=== PATIENT | male | born 1975 ===

== ENCOUNTER 2021-04-12 12:35 | Outpatient (CLI) | payer BC, SELFPAY ==
--- NOTE | ~2021-04-12 | CT_ITS ---
EXAMINATION: CT abdomen pelvis wo con DATE: 04/12/2021 13:06 INDICATION: Hematuria TECHNIQUE: Computed tomography (CT) of the abdomen and pelvis was performed without intravenous contr ast. Automated exposure control and iterative reconstruction technique were employed. Exam dose: 351 .59 mGy-cm total exam DLP. COMPARISON: noncontrast CT abdomen pelvis FINDINGS: Left lower lobe calcified pulmonary granuloma. No infiltrate or consolidation at the lung b ases. Normal heart size. No pericardial or pleural effusion. Small sliding hiatal hernia. The gallbladder is contracted. No hepatic, splenic, pancreatic, and adrenal or renal space-occupying mass lesion is evident on this limited noncontrast examination. No right urinary tract calculus or hydroureteronephrosis. 4.6 mm upper pole left renal nonobstructing calculus. 12.5 x 23 mm left renal pelvic calculus with attenuation of 1465 Hounsfield units. There are 2 lower pole left renal calculi, one pinpoint, the other proximally 2.7 x 8 mm. No left ure teral calculus or left hydroureteronephrosis. There is a 5 x 6 mm calculus in the dependent aspect of the urinary bladder. No bladder wall thickeni ng. The prostate gland and seminal vesicles are unremarkable. Normal caliber of the abdominal aorta. No intraperitoneal or retroperitoneal or pelvic mass lesion or adenopathy or ascites. Normal appendix. No bowel obstruction, bowel wall thickening, pneumatosis or intraperitoneal free air . Small fat-containing umbilical hernia. No suspicious osteolytic or osteoblastic lesions. IMPRESSION: Left nephrolithiasis 5 x 6 mm urinary bladder calculus Small sliding hiatal hernia Reviewed, dictated and finalized at [facility]. Reviewed, dictated and finalized at [facility]. [facility]
== END 2021-04-12 12:36 | disposition home or self-care (01) ==
LOC: ANHIMG 12:43
PROVIDERS: Visit Provider Physician Assistant Medical
DX: R31.9 Hematuria, unspecified (principal); N20.0 Calculus of kidney; N21.0 Calculus in bladder; K44.9 Diaphragmatic hernia without obstruction or gangrene
CPT/HCPCS: 74176